=== PATIENT | female | born 1975 | race Hispanic/Latino ===

== ENCOUNTER 2021-10-26 05:55 | Day surgery (SDC) | payer BC ==
[2021-10-25 12:46] LABS: EOSINOPHILS % (AUTO) 1.6 % (0.0-8.0); HEMATOCRIT 48.7 % (36-48); LYMPHOCYTES % (AUTO) 16.5 % (21.0-51.0); MEAN CORPUSCULAR HEMOGLOBIN 29.8 pg (27.0-33.0); MEAN CORPUSCULAR HGB CONC 32.4 g/dL (32.0-36.0); MEAN CORPUSCULAR VOLUME 91.7 fL (79-99); NEUTROPHILS % (AUTO) 75.5 % (40.0-77.0); PLATELET COUNT (AUTO) 315 K/uL (130-400); RED BLOOD CELL COUNT(AUTO) 5.31 MIL/uL (4.00-5.50)
[2021-10-25 13:09] LABS: ALBUMIN 3.6 g/dL (3.5-5.0); CREATININE 0.8 mg/dL (0.5-1.5); TOTAL PROTEIN, SERUM 8.1 g/dL (6.0-8.3)
[2021-10-25 16:21] VITALS: BP 158/89
[~2021-10-26] VITALS: Ht 167.6 cm; Wt 115.2 kg
[2021-10-26] VITALS (15 sets, daily range): BP systolic 102–143; BP diastolic 57–87
[~2021-10-26 05:55] MED LIST: VITAMIN D PO
[2021-10-26] MEDS ORDERED: LACTATED RINGERS 1000ML 1,000 ML IV ONE (06:42)
[2021-10-26] MEDS ORDERED: ROCURONIUM 10MG/1ML SYR 10 MG/ML ML ONE ×2 (06:57→10:11)
[2021-10-26] MEDS ORDERED: FENTANYL CITRATE PF 50 MCG/1 ML 5ML AMP IV ONE (06:57)
[2021-10-26] MEDS ORDERED: LIDOCAINE PF 100MG/5ML (2%) SYRINGE 5ML ONE (06:57)
[2021-10-26] MEDS ORDERED: PROPOFOL 10 MG/ML 20ML VIAL IV ONE (06:57)
[2021-10-26] MEDS ORDERED: MIDAZOLAM HCL 1 MG/ML 2ML VIAL ONE (06:58)
[2021-10-26] MEDS ORDERED: BUPIVACAINE/PF 0.25% 30ML VIAL IJ ONE (07:03)
[2021-10-26] MEDS ORDERED: SCOPOLAMINE HYDROBROMIDE 1 EACH ADH..PATCH TD ONE (07:32)
[2021-10-26] MEDS ORDERED: METRONIDAZOLE 500MG/100ML BAG 100 ML ONE (07:37)
[2021-10-26 07:48] LABS: INR 0.95 (0.85-1.15); PROTHROMBIN TIME 10.4 SEC (9.6-11.6)
[2021-10-26 07:49] LABS: PARTIAL THROMBOPLASTIN TIME 30.2 SEC (26.3-35.5)
[2021-10-26] MEDS: CEFAZOLIN SODIUM 1 GM VIAL ONE ×2 (08:00→09:28)
[2021-10-26] MEDS ORDERED: ONDANSETRON 4MG INJ ONE (10:04)
[2021-10-26] MEDS ORDERED: EPHEDRINE SULFATE 50 MG/ML AMPULE ONE (10:20)
[2021-10-26] MEDS ORDERED: GLYCOPYRROLATE 1 MG/5 ML SYRINGE ONE (11:25)
[2021-10-26] MEDS ORDERED: NEOSTIGMINE 5MG/5ML SYR IV ONE (11:26)
[2021-10-26] MEDS ORDERED: KETOROLAC 30MG VIAL (30MG/ML) ONE ×2 (11:40→11:53)
[2021-10-26] MEDS ORDERED: MEPERIDINE-PF 25 MG/ML SYG ONE ×2 (12:06→12:17)
== END 2021-10-26 13:35 | disposition home or self-care (01) ==
LOC: DAH 05:55
PROVIDERS: ATTEND Surgery
DX: R10.13 Epigastric pain (principal); K21.9 Gastro-esophageal reflux disease without esophagitis; K66.0 Peritoneal adhesions (postprocedural) (postinfection); R14.0 Abdominal distension (gaseous); E66.01 Morbid (severe) obesity due to excess calories; E11.9 Type 2 diabetes mellitus without complications; K76.0 Fatty (change of) liver, not elsewhere classified; E88.81 Metabolic syndrome and other insulin resistance; N92.6 Irregular menstruation, unspecified; Z80.0 Family history of malignant neoplasm of digestive organs; Z98.890 Other specified postprocedural states; G47.33 Obstructive sleep apnea (adult) (pediatric); Z72.89 Other problems related to lifestyle; Z68.41 Body mass index [BMI] 40.0-44.9, adult; Z79.899 Other long term (current) drug therapy
CPT/HCPCS: 80053; 84703; 85025; 87426; 36415 ×2; 93005; 49329; 43235; 85610; 85730; 86850; 86900; 86901; 82948 ×2; A6260; A4223 ×2; A4663; J7030; J7120; J3010; J0690; J3490 ×4; J2710; J2001; J2250; J2704; J2405; J1885; J2175 ×2; G0168; C1769 ×3; A4649; A4215; A4222; A4221; A4600